=== PATIENT | female | born 2000 | race Caucasian/White ===

== ENCOUNTER 2018-03-12 13:14 | Emergency (ER) | payer OTHER ==
[2018-03-12 13:20] VITALS: BP 118/77; PULSE 96; RESP 16; TEMP 97.9
--- NOTE | 2018-03-12 14:06 | ED ---
Wound/Laceration HPI - General Chief Complaint: Wound/Laceration Stated Complaint: hand lac Time Seen by Provider: 03/12/18 13:26 Source: patient, RN notes reviewed Mode of arrival: ambulatory Limitations: no limitations - History of Present Illness Initial Comments: 17-year-old female presents emergency Department chief complaint laceration to her left hand Patient states his happened at school she is at the [employer]. Patient states she was cutting tomatoes towards her hand and sliced between her first and second digit. Her tetanus is up-to-date. She has full range of motion at this time denies any paresthesias. - Related Data Allergies Allergy/AdvReac Type Severity Reaction Status Date / Time ibuprofen Allergy Unknown Verified 03/12/18 13:20 Review of Systems ROS Statement: Those systems with pertinent positive or pertinent negative responses have been documented in the HPI. ROS Other: All systems not noted in ROS Statement are negative. Past Medical History Past Medical History: Cancer Additional Past Medical History / Comment(s): brain tumor History of Any Multi-Drug Resistant Organisms: None Reported Past Surgical History: No Surgical Hx Reported Past Psychological History: No Psychological Hx Reported Smoking Status: Never smoker Past Alcohol Use History: None Reported Past Drug Use History: None Reported General Exam Limitations: no limitations General appearance: alert, in no apparent distress Head exam: Present: atraumatic, normocephalic, normal inspection Eye exam: Present: normal appearance, PERRL, EOMI. Absent: scleral icterus, conjunctival injection, periorbital swelling Neck exam: Present: normal inspection. Absent: tenderness, meningismus, lymphadenopathy Respiratory exam: Present: normal lung sounds bilaterally. Absent: respiratory distress, wheezes, rales, rhonchi, stridor Cardiovascular Exam: Present: regular rate, normal rhythm, normal heart sounds. Absent: systolic murmur, diastolic murmur, rubs, gallop, clicks Extremities exam: Present: other (Left hand there is a 2 cm laceration between the first and second digit patient has full range of motion of all digits neurovascular intact with cap refill less than 2 seconds) Course Vital Signs 03/12/18 13:17 Temperature 97.9 F Pulse Rate 96 Respiratory 16 Rate Blood Pressure 118/77 O2 Sat by Pulse 98 Oximetry Procedures - Laceration Laceration #1 Consent Obtained: verbal consent Indication: laceration Site: hand (Left hand) Size (cm): 2 Description: linear Depth: simple, single layer Anesthetic Used: lidocaine 1%, without epi Anesthesia Technique: local infiltration Amount (mls): 3 Pre-repair: wound explored, irrigated extensively, deep structures intact Type of Sutures: nylon Size of Sutures: 4-0 Number of Sutures: 4 Technique: simple, interrupted Patient Tolerated Procedure: well, no complications Medical Decision Making - Medical Decision Making 17-year-old female presented emergency from for left hand laceration. This was closed using sutures. There is no tendon injury. She has full range of motion full-strength. Patient will follow-up for recheck and return in 10 days for suture removal. Wound care instructions provided. Disposition Clinical Impression: Laceration of left hand Disposition: HOME SELF-CARE Condition: Stable Instructions: Care For Your Stitches (DC), Laceration (DC) Additional Instructions: Please return to the Emergency Department if symptoms worsen or any other concerns. Have sutures removed in 10 days. Is patient prescribed a controlled substance at d/c from ED?: No Referrals: Nonstaff,Physician [Primary Care Provider] - 1-2 days Time of Disposition: 14:06
== END 2018-03-12 14:21 | disposition home or self-care (01) ==
LOC: EC 13:14
DX: S61.412A Laceration without foreign body of left hand, initial encounter (principal); Z85.9 Personal history of malignant neoplasm, unspecified; Z88.6 Allergy status to analgesic agent; W26.0XXA Contact with knife, initial encounter; Y93.89 Activity, other specified; Y92.219 Unspecified school as the place of occurrence of the external cause
CPT/HCPCS: 12001; 99282